=== PATIENT | male | born 2000 | race Hispanic/Latino ===

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

== ENCOUNTER 2020-06-24 13:50 | Emergency (ER) | payer SELFPAY ==
[~2020-06-24] VITALS: Ht 175.3 cm; Wt 97.5 kg
== END 2020-06-24 14:14 | disposition home or self-care (01) ==
LOC: ER 14:14
DX: J06.9 Acute upper respiratory infection, unspecified (principal); R05 Cough; J45.909 Unspecified asthma, uncomplicated; F41.9 Anxiety disorder, unspecified; F32.9 Major depressive disorder, single episode, unspecified; F84.5 Asperger's syndrome
CPT/HCPCS: 99282

== ENCOUNTER 2020-06-25 08:09 | Emergency (ER) | payer BC, OTHER ==
[~2020-06-25] VITALS: Ht 175.3 cm; Wt 97.5 kg
[2020-06-25] MEDS ORDERED: PREDNISONE 10 MG TAB PO ONE (08:30)
[2020-06-25] MEDS ORDERED: PREDNISONE 20 MG TAB PO ONE (08:30)
[2020-06-25] MEDS ORDERED: PREDNISONE 20 MG TAB ONE (08:34)
== END 2020-06-25 09:46 | disposition home or self-care (01) ==
LOC: ER 08:20
DX: R05 Cough (principal); R06.02 Shortness of breath; J40 Bronchitis, not specified as acute or chronic; J06.9 Acute upper respiratory infection, unspecified; F84.5 Asperger's syndrome; F41.9 Anxiety disorder, unspecified
CPT/HCPCS: 71045; 99283; J7512